=== PATIENT | female | born 1955 | race Caucasian/White ===

== ENCOUNTER → 2017-04-03 | Outpatient (CLI) | payer BC ==
[~2017-04-03] MED LIST: GADAVIST IV PRN
--- NOTE | 2017-04-03 14:39 | DIAGNOSTIC IMAGING REPORT ---
C-SPINE ROUTINE 4 OR 5 VIEWS CLINICAL HISTORY: Chronic neck pain. Headaches. COMPARISON STUDY: No previous studies for comparison. FINDINGS: The prevertebral soft tissues are normal. There are multilevel degenerative changes with disc space narrowing most pronounced the 4-5, C5-6, and C6-7 levels. There is minimal retrolisthesis of C4 on C5 which is felt to be degenerative. There is uncovertebral joint spurring. There is multilevel foraminal narrowing most pronounced at the C4-5 and C5-6 levels bilaterally IMPRESSION: Moderate multilevel degenerative change. No acute fractures or traumatic subluxations or destructive lesions are visualized Electronically signed by: Ed Malcolm M.D. 04/03/2017 2:37 PM Dictated Date/Time: 04/03/2017 2:36 PM
--- NOTE | 2017-04-03 15:59 | DIAGNOSTIC IMAGING REPORT ---
Brain MRI WITH AND WITHOUT CONTRAST HISTORY: HEADACHE, DIZZINESS, GIDDINESS TECHNIQUE: Multiplanar multisequence MRI of the brain was performed both before and after the intravenous administration of contrast. COMPARISON STUDY: None. FINDINGS: There are no areas of restricted diffusion to suggest acute infarction. The midline structures are intact. The paranasal sinuses are clear. The mastoid air cells are clear. The ventricles and sulci are within normal limits for age. There is no mass, hematoma, midline shift. The major vascular flow-voids at the skull base are well maintained. Postcontrast sequences show no areas of abnormal enhancement. IMPRESSION: No acute intracranial abnormality. Electronically signed by: Christiano Escobar M.D. 04/03/2017 3:58 PM Dictated Date/Time: 04/03/2017 3:54 PM
== END | disposition home or self-care (01) ==
LOC: C.MRI 13:47
PROVIDERS: ATTEND Physician Assistant
DX: R51 Headache (principal); R42 Dizziness and giddiness; H93.19 Tinnitus, unspecified ear; M50.30 Other cervical disc degeneration, unspecified cervical region

== ENCOUNTER → 2017-07-17 | Outpatient (CLI) | payer OTHER, BC ==
--- NOTE | 2017-07-17 16:21 | DIAGNOSTIC IMAGING REPORT ---
RIGHT ELBOW MIN 3 VIEWS ROUTINE HISTORY: 61 years-old Female RIGHT ELBOW PAIN/RIB PAIN Right COMPARISON: None available TECHNIQUE: 3 views of the right elbow. FINDINGS: There is an acute comminuted intra-articular radial head fracture without associated significant displacement or angulation. The capitellum appears intact. There is a large joint effusion about the elbow with moderate degree of dorsal soft tissue swelling. Linear 9 mm bone fragment is seen adjacent to the olecranon process. IMPRESSION: 1. Acute comminuted nondisplaced intra-articular radial head fracture with associated soft tissue swelling and large joint effusion/hemarthrosis. 2. 9 mm linear ossification adjacent to the olecranon process suggests an enthesophyte with acute avulsion fragment thought to be less likely. Correlate with point tenderness. The above report was generated using voice recognition software. It may contain grammatical, syntax or spelling errors. Electronically signed by: Juan Manuel Mascorro M.D. 07/17/2017 4:19 PM Dictated Date/Time: 07/17/2017 4:17 PM
--- NOTE | 2017-07-17 16:22 | DIAGNOSTIC IMAGING REPORT ---
RIGHT RIBS UNILATERAL WITH PA CHEST HISTORY: 61 years-old Female RIGHT ELBOW PAIN/RIB PAIN Right COMPARISON: Chest radiographs 09/29/2014 TECHNIQUE: Frontal view of the chest with 4 views of the right ribs FINDINGS: Cardiac silhouette is upper limits of normal. There is no pneumothorax, pleural effusion or focal airspace consolidation. Calcified granulomas are seen within the right upper lobe. Cholecystectomy clips are noted. No acute displaced rib fracture is identified. IMPRESSION: 1. No acute cardiopulmonary process. 2. No acute displaced rib fracture or pneumothorax. The above report was generated using voice recognition software. It may contain grammatical, syntax or spelling errors. Electronically signed by: Juan Manuel Mascorro M.D. 07/17/2017 4:21 PM Dictated Date/Time: 07/17/2017 4:19 PM
== END | disposition home or self-care (01) ==
LOC: C.RAD1850 15:13
PROVIDERS: ATTEND Nurse Practitioner Adult Health
DX: R07.81 Pleurodynia (principal); M25.521 Pain in right elbow